=== PATIENT | male | born 1955 | race Caucasian/White ===

== ENCOUNTER 2023-07-19 10:01 | Day surgery (SDC) | payer MEDICARE, BC ==
[2023-07-18 11:28] LABS: BASOPHILS % (AUTO) 0.6 % (0-1); EOSINOPHILS # (AUTO) 0.1 X10'3 (0-0.9); EOSINOPHILS % (AUTO) 1.5 % (0-6); HEMATOCRIT 46.8 % (42.0-52.0); HEMOGLOBIN 16.1 g/dl (14.0-17.9); LYMPHOCYTES # (AUTO) 1.4 X10'3 (1.1-4.8); LYMPHOCYTES % (AUTO) 18.4 % (21-51); MEAN CORPUSCULAR HEMOGLOBIN 30.7 PG (27.0-31.0); MEAN CORPUSCULAR HGB CONC 34.4 g/dL (33.0-36.5); MEAN CORPUSCULAR VOLUME 89.4 FL (78-98); MEAN PLATELET VOLUME 7.8 FL (7.4-10.4); MONOCYTES # (AUTO) 0.6 X10'3 (0-0.9); NEUTROPHILS # (AUTO) 5.7 X10'3 (1.8-7.7); NEUTROPHILS % (AUTO) 72.5 % (42-75); PLATELET COUNT 235 X10'3 (140-440); RED BLOOD COUNT 5.23 X10'6 (4.70-6.10); RED CELL DISTRIBUTION WIDTH 13.7 % (11.5-14.5); WHITE BLOOD COUNT 7.9 X10'3 (4.5-11.0)
[2023-07-18 11:45] LABS: APTT 27 SECONDS (22-32)
[2023-07-18 11:48] LABS: PROTHROMBIN TIME 10.9 SECONDS (9.0-12.0)
[2023-07-18 11:51] LABS: ALBUMIN 3.6 G/DL (3.4-5.0); ANION GAP 8 (8-16); BLOOD UREA NITROGEN 16 MG/DL (7-18); BUN/CREATININE RATIO 14.7 (10.0-20.0); CHLORIDE 106 MMOL/L (99-107); CREATININE 1.09 MG/DL (0.60-1.10); GLUCOSE 116 MG/DL (70-104); SODIUM 141 MMOL/L (135-145); TOTAL CARBON DIOXIDE 27.3 MMOL/L (24-32); eGFR 67 ML/MIN
[~2023-07-19] VITALS: Ht 193 cm; Wt 110.3 kg
[2023-07-19] VITALS (11 sets, daily range): BP systolic 118–155; BP diastolic 73–94; PULSE 61–66; RESP 12–17; TEMP 98.1; O2SAT 94–97
[2023-07-19] MEDS ORDERED: ATOR40TA72 PO (10:31)
[2023-07-19] MEDS ORDERED: ATEN25TA PO (10:31)
[2023-07-19] MEDS ORDERED: RIVA20TA PO (10:31)
[2023-07-19] MEDS ORDERED: ZOLP5TAB8 PO (10:31)
[2023-07-19] MEDS ORDERED: normal saline 1,000 ML IV SCH (10:40)
[2023-07-19] MEDS ORDERED: LORazepam 0.5 MG tablet PO PRN (10:40)
[2023-07-19] MEDS ORDERED: diphenhydrAMINE 25mg capsule PO PRN (10:40)
[2023-07-19] MEDS ORDERED: verapamil 2.5 mg/ml inj IV ONE (10:55)
[2023-07-19] MEDS ORDERED: fentaNYL/PF 50MCG/1 ML 2ML syringe ONE (10:55)
[2023-07-19] MEDS ORDERED: LIDOcaine 1% (10mg/ml) 2ml vial ONE (10:55)
[2023-07-19] MEDS ORDERED: iohexol 350MG/ML 100ml bottle IV ONE (10:56)
[2023-07-19] MEDS ORDERED: iohexol 350 MG/ML 50ML vial IV ONE ×4 (10:56→12:46)
[2023-07-19] MEDS ORDERED: heparin 1,000unit/ml 10ml vial 10 ML ONE (10:56)
[2023-07-19] MEDS ORDERED: midazolam 1 mg/ML 2ml injection ONE (10:56)
[2023-07-19] MEDS ORDERED: nitroGLYCERIN 500mcg/5mL D5W 5 ML IV ONE (11:09)
[2023-07-19] MEDS ORDERED: diphenhydrAMINE 50 mg/ml inj ONE (11:21)
[2023-07-19] MEDS ORDERED: heparin 1,000 UNITS/NS 500ml 500 ML ONE (12:53)
[2023-07-19 12:56] LABS: ISTAT HGB ART 14.6 g/dl (14.0-17.9); ISTAT Hct ART 43 %PCV (42-52); ISTAT O2 SATURATION ARTERIAL 94 % (95-98); ISTAT SOURCE ART
[2023-07-22 06:39] LABS: ISTAT HGB MIX 14.3 g/dl (14.0-17.9); ISTAT Hct MIX 42 %PCV (42-52); ISTAT O2 SATURATION MIX VENOUS 68 % (60-80); ISTAT SOURCE VEN
== END 2023-07-19 17:07 | disposition home or self-care (01) ==
LOC: SSTAY O 10:01
PROVIDERS: ATTEND Internal Medicine Cardiovascular Disease
DX: I35.0 Nonrheumatic aortic (valve) stenosis (principal); I25.10 Atherosclerotic heart disease of native coronary artery without angina pectoris; I10 Essential (primary) hypertension; E78.5 Hyperlipidemia, unspecified; I48.92 Unspecified atrial flutter; I71.20 Thoracic aortic aneurysm, without rupture, unspecified; Z86.718 Personal history of other venous thrombosis and embolism; Z85.828 Personal history of other malignant neoplasm of skin; Z85.72 Personal history of non-Hodgkin lymphomas; Z98.890 Other specified postprocedural states; Z88.0 Allergy status to penicillin; Z79.899 Other long term (current) drug therapy; Z79.01 Long term (current) use of anticoagulants; Z82.3 Family history of stroke; Z82.49 Family history of ischemic heart disease and other diseases of the circulatory system; Z82.5 Family history of asthma and other chronic lower respiratory diseases; Z80.42 Family history of malignant neoplasm of prostate
CPT/HCPCS: 36415; 76937; 80048; 82803; 85014; 85025; 85610; 85730; 93005; 93460; 93567; 99152; 99153; J1200; J1644; J2250; J3010; J3490; J7030; Q9967; A6258; A6402; A6449; C1725; C1751; C1769; C1894

== ENCOUNTER 2025-05-26 01:52 | Emergency (ER) | payer MEDICARE, BC ==
[~2025-05-26] VITALS: Ht 193 cm; Wt 106.0 kg
[~2025-05-26 01:52] MED LIST: ASPI81TA53 PO; ATOR10TA PO; CHOL100046 PO; CYAN100082 PO; HYDR-3972 PO; LOP12.5T PO; RIVA20TA PO; ZINC220T3 PO; ZOLP5TAB18 PO; [UNRECOGNIZED DRUG - CODE] PO
--- NOTE | 2025-05-26 02:01 | ELECTROCARDIOGRAPH REPORT ---
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 Marito Rader Measurements Intervals [place] Rate: 136 P: 38 NC: 292 QRS: -85 QRSD: 110 T: 66 QT: 346 QTc: 521 Interpretive Statements Sinus tachycardia Prolonged NC interval Prominent P waves, nondiagnostic Probable inferior infarct, acute Anterior infarct, old Prolonged QT interval Electronically Signed On 06-03-2025 0:24:[address] Marito Rader Please click the below link to view image of tracing.
[2025-05-26 02:28] LABS: MEAN PLATELET VOLUME 7.6 FL (7.4-10.4); RED CELL DISTRIBUTION WIDTH 14.0 % (11.5-14.5)
[2025-05-26 02:44] LABS: CREATININE 1.28 MG/DL (0.60-1.10); PRO BRAIN NATRIURETIC PEPTIDE 381 PG/ML (0-125); TOTAL CARBON DIOXIDE 25.9 MMOL/L (24-32); eCRCL 67 ML/MIN; eGFR 56 ML/MIN
--- NOTE | 2025-05-26 02:51 | RADIOLOGY REPORT ---
CHEST RADIOGRAPH INDICATION: CP TECHNIQUE: Single frontal view of the chest was obtained COMPARISON: DI CHEST,SINGLE VIEW on DOS: 10/05/23, DI CHEST,SINGLE VIEW on DOS: 10/04/23, DI CHEST,SINGLE VIEW on DOS: 10/03/23, DI CHEST,SINGLE VIEW on DOS: 10/02/23 FINDINGS: Lines and Tubes: None Lungs: Clear Pleura: No effusion. Probable scarring of the lateral left lung base. No pneumothorax. Cardiomediastinal contours: Unremarkable status post median sternotomy. Atrial appendage closure device. Bones: Unremarkable IMPRESSION: 1. No radiographic evidence of acute cardiopulmonary abnormality.
--- NOTE | 2025-05-26 03:37 | Physician Documentation ---
History of Present Illness ~ Chief Complaint: Palpitations Stated Complaint: CHEST DISCOMFORT Time Seen by MD: 03:28 HPI Patient presents to the emergency room with chief complaint of palpitations and fast heart rate. He reports that his heart monitor woke him up from sleep for fast heart rate. Patient has history of paroxysmal atrial fibrillation. His stone trimmer had him stop his metoprolol over the past couple of days because he has a stress test scheduled this morning. He had denies any chest pain but does state he has an unusual feeling in the left side of his chest. Medication Reconciliation Allergies: Coded Allergies: tamsulosin (Verified Allergy, Intermediate, TOUNGE SWELLING, 10/02/23) Penicillins (Verified Allergy, Unknown, 07/19/23) Scheduled Aspirin (Children's Aspirin), 81 MG PO Q24H@0830 Atorvastatin Calcium (Lipitor), 10 MG PO HS Cholecalciferol (Vitamin D3) (Vitamin D3), 1 CAP PO DAILY, (Reported) Cyanocobalamin (Vitamin B-12) (B-12), 1 TAB PO DAILY, (Reported) Lactobacillus Rhamnosus GG (Culturelle), Unknown Dose PO DAILY, (Reported) Metoprolol Tartrate (Lopressor tablet), 25 MG PO Q12H Rivaroxaban (Xarelto), 1 TAB PO WD, (Reported) Zinc Sulfate (Zinc), 1 TAB PO DAILY, (Reported) Scheduled PRN Hydrocodone Bit/Acetaminophen (Hydrocodon-Acetaminophn 10-325 tablet), 1 TAB PO Q6H PRN for MODERATE PAIN 4-6 Zolpidem Tartrate (Zolpidem Tartrate), 1 TAB PO HS PRN for sleep, (Reported) Review of Systems ROS All review of systems negative except as per HPI Physical Exam Vital Signs: Temperature: 97.7, Heart Rate: 136, Respiratory Rate: 16, BP: 131/72, Pulse Oximetry: 96, Weight: 106.000 Oxygen Flow Rate: 0 Physical Exam General: Patient is awake, alert, oriented x4 in no acute distress and well appearing.~ Head: Normocephalic and atraumatic. Eyes: Conjunctival normal. EOMI. PERRL. ENT: Mucous membranes moist. Neck: Supple, trachea is midline. Chest: Clear to auscultation bilaterally without rales, rhonchi, or wheezes. There is no accessory muscle use or retractions. Cardiac: Tachycardic and regular without murmurs, gallops, or rubs. Progress Results/Orders Results/Orders Orders - HARPAL FLAHERTY MD Chest,Single View (05/26/25 02:20) Monitor (05/26/25 01:59) Saline Lock (05/26/25 01:59) Oxygen (05/26/25 01:59) Hs Troponin I W Calculations (05/26/25 04:59) Magnesium Sulf-Water 2g/50ml (Magnesium (05/26/25 04:05) Completed Orders - HARPAL FLAHERTY MD Chest,Single View (05/26/25 02:20) Cbc/Diff (05/26/25 01:59) BMP (05/26/25 01:59) PBNP (05/26/25 01:59) Electrocardiogram (05/26/25 01:59) Hs Troponin I W Calculations (05/26/25 01:59) Hs Troponin I W Calculations (05/26/25 03:59) Normal Saline 1000ml (0.9% Sodium Chlori (05/26/25 03:40) Medications Received in ER Medications (Trade) Dose Ordered Sig/Cassy Route PRN Reason Start Time Stop Time Status Last Admin Dose Admin Sodium Chloride 1,000 ml @ 1,000 mls/hr ONCE ONCE IV 05/26/25 03:40 05/26/25 04:39 DC 05/26/25 04:23 1,000 MLS/HR Magnesium Sulfate 50 ml @ 25 mls/hr ONCE ONCE IV 05/26/25 04:05 05/26/25 06:04 05/26/25 04:37 25 MLS/HR Vital Signs 05/26/25 05/26/25 05/26/25 05/26/25 02:01 03:00 04:00 04:53 Temp 97.7 97.7 97.7 Pulse 136 120 119 Resp 16 19 19 17 B/P (MAP) 131/72 130/88 (102) 122/79 (93) Pulse Ox 96 95 96 O2 Flow Rate 0 0 0 Laboratory Tests Test 05/26/25 02:15 05/26/25 04:29 White Blood Count 9.7 Red Blood Count 5.40 Hemoglobin 16.2 Hematocrit 47.6 Mean Corpuscular Volume 88.2 Mean Corpuscular Hemoglobin 29.9 Mean Corpuscular Hemoglobin Concent 33.9 Red Cell Distribution Width 14.0 Platelet Count 216 Mean Platelet Volume 7.6 Neutrophils (%) (Auto) 74.8 Lymphocytes (%) (Auto) 17.1 L Monocytes (%) (Auto) 5.9 Eosinophils (%) (Auto) 1.3 Basophils (%) (Auto) 0.9 Neutrophils # (Auto) 7.3 Lymphocytes # (Auto) 1.7 Monocytes # (Auto) 0.6 Eosinophils # (Auto) 0.1 Basophils # (Auto) 0.1 CBC Comment Sodium Level 142 Potassium Level 3.9 Chloride Level 106 Carbon Dioxide Level 25.9 Anion Gap 10 Blood Urea Nitrogen 20 H Creatinine 1.28 H Estimated GFR/1.73 m2 56 BUN/Creatinine Ratio 15.6 Glucose Level 162 H Calcium Level 9.2 Troponin I High Sensitivity 25 25 Pro-B-Type Natriuretic Peptide 381 H Albumin 3.6 Chemistry Comments Troponin I High Sens Percent Delta 0 Troponin I Hi Sens Absolute Change 0 Medical Decision Making Additional information obtaine: old records Findings Patient presented to the emergency room with racing heartbeat as per HPI. Differentials include but are not limited to SVT, AFib, a flutter, V-tach therefore EKG and labs indicated. EKG shows junctional rhythm which improve after saline administered. I do believe that has an element of dehydration. Troponins negative x2. Differential Dx:Considerations: Include: angina / [place], atrial dysrhythmia, atrial fibrillation, atrial flutter, MAT, PACs, PSVT, sinus tachycardia, WPW, 1st degree AV block, 2nd degree AVB-type 1, 2nd degree AVB-type 2, 3rd degree AV block, PVCs, torsades de pointes, ventricular fibrillation, ventricular tachycardia, other Differential Dx:Considerations: Include anxiety/panic attack, Include digoxin toxicity, Include electrolyte disorder, Include heart failure, Include hyperthyroidism, Include hyperventilation, Include hypoxia, Include pacemaker malfunction, Include pulmonary embolus, Include renal failure, Include other Departure Disposition: 01 HOME / SELF CARE / HOMELESS Impression: Primary Impression: Irregular heartbeat Condition: Improved Discharge Instructions: Palpitations, [id number] Additional Instructions: Follow up with your cardiology stress test today. Return for any symptoms Referrals: NO PRIMARY CARE PROVIDER (PCP) Signature Scribe Signature: No scribe Attestation: The note accurately reflects work and decisions made by me.Harpal Flaherty MD 05/26/25 05:21 HARPAL FLAHERTY MD May 26, 2025 03:37
[2025-05-26] MEDS: normal saline 1000ml 1,000 ML IV ONE (04:23)
[2025-05-26] MEDS: magnesium sulf-water 2g/50mL 50 ML IV ONE (04:37)
[2025-05-26 05:00] VITALS: O2SAT 98
[2025-05-26 05:46] VITALS: BP 132/92; PULSE 95; RESP 13; TEMP 97.7
--- NOTE | 2025-05-26 07:04 | ELECTROCARDIOGRAPH REPORT ---
[facility] Test Date: 2025-05-26 Test Time: 03:35:47 Pat Name: TRACEE ALICIA Department: EMERGENCY ROOM 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 Marito Rader Measurements Intervals [place] Rate: 112 P: 0 NM: 0 QRS: -73 QRSD: 107 T: 62 QT: 353 QTc: 482 Interpretive Statements Pacemaker spikes or artifacts Junctional tachycardia Inferior infarct, old Baseline wander in lead(s) I,II,aVR Electronically Signed On 06-03-2025 0:24:[address] Marito Rader Please click the below link to view image of tracing.
== END 2025-05-26 05:50 | disposition home or self-care (01) ==
LOC: ER 01:53
DX: I49.9 Cardiac arrhythmia, unspecified (principal); I25.2 Old myocardial infarction; Z95.0 Presence of cardiac pacemaker; Z88.0 Allergy status to penicillin; I48.0 Paroxysmal atrial fibrillation; Z79.82 Long term (current) use of aspirin; Z79.899 Other long term (current) drug therapy; Z88.8 Allergy status to other drugs, medicaments and biological substances
CPT/HCPCS: 36415; 71045; 80048; 83880; 84484; 85025; 93005; 96365; 99285; J7030